=== PATIENT | female | born 1965 | race Caucasian/White ===

== ENCOUNTER 2018-08-19 14:24 | Emergency (ER) | payer MEDICAID ==
[2018-08-19 15:16] LABS: BASOPHILS # (AUTO) 0.1 X10'3 (0-0.2); BASOPHILS % (AUTO) 0.7 % (0-1); EOSINOPHILS % (AUTO) 0.3 % (0-6); HEMOGLOBIN 15.4 g/dl (12.0-16.0); LYMPHOCYTES # (AUTO) 1.5 X10'3 (1.1-4.8); LYMPHOCYTES % (AUTO) 18.3 % (21-51); MEAN CORPUSCULAR HGB CONC 33.6 g/dL (33.0-36.5); MEAN CORPUSCULAR VOLUME 86.5 FL (78-98); MEAN PLATELET VOLUME 8.7 FL (7.4-10.4); MONOCYTES # (AUTO) 0.7 X10'3 (0-0.9); MONOCYTES % (AUTO) 9.1 % (2-12); NEUTROPHILS # (AUTO) 5.8 X10'3 (1.8-7.7); NEUTROPHILS % (AUTO) 71.6 % (42-75); PLATELET COUNT 364 X10'3 (140-440); RED BLOOD COUNT 5.32 X10'6 (4.20-5.60); RED CELL DISTRIBUTION WIDTH 13.9 % (11.5-14.5); WHITE BLOOD COUNT 8.1 X10'3 (4.5-11.0)
[2018-08-19 15:23] LABS: INR 1.1 INR; PROTHROMBIN TIME 11.5 SECONDS (9.0-12.0)
[2018-08-19 15:29] LABS: ALANINE AMINOTRANSFERASE 18 U/L (12-78); ALBUMIN 3.8 G/DL (3.4-5.0); ALKALINE PHOSPHATASE 67 IU/L (46-116); ANION GAP 14 (8-16); ASPARTATE AMINO TRANSFERASE 19 U/L (10-37); BILIRUBIN,TOTAL 0.6 MG/DL (0.1-1.0); BLOOD UREA NITROGEN 3 MG/DL (7-18); BUN/CREATININE RATIO 5.3 (6.6-38.0); CALCIUM 9.5 MG/DL (8.5-10.1); CHLORIDE 97 MMOL/L (99-107); CREATININE 0.57 MG/DL (0.40-0.90); GLUCOSE 107 MG/DL (70-104); POTASSIUM 3.2 MMOL/L (3.5-5.1); SODIUM 134 MMOL/L (135-145); TOTAL CARBON DIOXIDE 23.5 MMOL/L (24-32); TOTAL PROTEIN 7.5 G/DL (6.4-8.2); eGFR > 90 ML/MIN
[2018-08-19] MEDS ORDERED: mag hydrox/Alum hydrox/simeth 30ml oral suspension PO ONE (17:10)
[2018-08-19] MEDS ORDERED: LIDOcaine Viscous 15ml cup PO ONE (17:10)
[2018-08-19] MEDS ORDERED: LORazepam 1 MG tablet PO ONE (17:10)
[2018-08-19] MEDS ORDERED: dicyclomine 10 MG capsule PO ONE (17:10)
[2018-08-19] MEDS ORDERED: DICY10CA88 PO (17:48)
[2018-08-19] MEDS ORDERED: LORA1TAB PO (17:48)
[2018-08-19] MEDS ORDERED: POTA20TA19 PO (17:56)
[2018-08-19 18:02] LABS: CLARITY,URINE CLEAR (Clear); COLOR,URINE YELLOW (Yellow); GLUCOSE, URINE NEGATIVE (Neg); KETONES,URINE >=80 mg/dl (Neg); LEUKOCYTE ESTERASE ,URINE NEGATIVE (Neg); NITRITES, URINE NEGATIVE (Neg); OCCULT BLOOD,URINE TRACE-INTACT (Neg); PH,URINE 5.5 (4.8-8.0); PROTEIN,URINE NEGATIVE (Neg); UROBILINOGEN,URINE 0.2 E.U/dL (0.2-1.0)
[2018-08-19 18:03] LABS: UA COLLECTION TYPE CLN CATCH MIDSTREAM
[2018-08-19 18:08] LABS: MUCUS STRANDS FEW /LPF (Neg); SQUAMOUS EPITHELIAL CELL,UR FEW /LPF (FEW)
[2018-08-19 18:10] LABS: BACTERIA,URINE 1+ /HPF (Neg); HYALINE CASTS 0-3 /LPF (NEGATIVE); RBC,URINE 0-2 /HPF (0-2); TRANSITIONAL EPI CELLS,URINE FEW /HPF; WBC,URINE 0-4 /HPF (0-4)
[2018-08-19 18:33] VITALS: BP 160/88
== END 2018-08-19 18:34 | disposition home or self-care (01) ==
LOC: ER 14:24
DX: R10.9 Unspecified abdominal pain (principal); E87.6 Hypokalemia; Z88.2 Allergy status to sulfonamides; Z88.6 Allergy status to analgesic agent; Z88.1 Allergy status to other antibiotic agents; Z88.8 Allergy status to other drugs, medicaments and biological substances; Z79.899 Other long term (current) drug therapy
CPT/HCPCS: 36415; 80053; 81001; 84484; 85025; 85610; 93005; 99284

== ENCOUNTER 2020-05-05 11:50 | Emergency (ER) | payer MEDICAID ==
[~2020-05-05] VITALS: Ht 165.1 cm; Wt 30.9 kg
[2020-05-05] MEDS ORDERED: normal saline 1000ML IV soln IVB ONE (12:20)
--- NOTE | 2020-05-05 12:25 | NUR ---
Pt refusing normal saline, stating it makes her "acidic". When asked what pt means, she states that IV fluids give her acid reflux symptoms.
[2020-05-05] MEDS ORDERED: LORazepam 2 mg/ml vial IV ONE (12:35)
[2020-05-05] MEDS ORDERED: pantoprazole 40 MG vial IV ONE (12:35)
[2020-05-05 12:45] LABS: BASOPHILS # (AUTO) 0.1 X10'3 (0-0.2); BASOPHILS % (AUTO) 1.1 % (0-1); EOSINOPHILS # (AUTO) 0.1 X10'3 (0-0.9); EOSINOPHILS % (AUTO) 1.2 % (0-6); HEMATOCRIT 44.5 % (35.0-45.0); HEMOGLOBIN 14.9 g/dl (12.0-16.0); LYMPHOCYTES # (AUTO) 1.8 X10'3 (1.1-4.8); LYMPHOCYTES % (AUTO) 27.8 % (21-51); MEAN CORPUSCULAR HGB CONC 33.5 g/dL (33.0-36.5); MEAN CORPUSCULAR VOLUME 89.5 FL (78-98); MEAN PLATELET VOLUME 7.7 FL (7.4-10.4); MONOCYTES # (AUTO) 0.6 X10'3 (0-0.9); MONOCYTES % (AUTO) 9.7 % (2-12); NEUTROPHILS # (AUTO) 3.8 X10'3 (1.8-7.7); NEUTROPHILS % (AUTO) 60.2 % (42-75); PLATELET COUNT 440 X10'3 (140-440); RED BLOOD COUNT 4.97 X10'6 (4.20-5.60); WHITE BLOOD COUNT 6.4 X10'3 (4.5-11.0)
--- NOTE | 2020-05-05 12:49 | NUR ---
Attempted to give pt protonix. Pt refused medication stating she's dry and doesn't have a problem with stomach acid. SACHIN Wells aware.
[2020-05-05 12:57] LABS: ALANINE AMINOTRANSFERASE 40 U/L (12-78); ALBUMIN 3.7 G/DL (3.4-5.0); ALKALINE PHOSPHATASE 67 IU/L (46-116); ANION GAP 6 (8-16); ASPARTATE AMINO TRANSFERASE 28 U/L (10-37); BILIRUBIN,TOTAL 0.5 MG/DL (0.1-1.0); BLOOD UREA NITROGEN 9 MG/DL (7-18); CALCIUM 9.3 MG/DL (8.5-10.1); CHLORIDE 102 MMOL/L (99-107); GLUCOSE 97 MG/DL (70-104); POTASSIUM 3.4 MMOL/L (3.5-5.1); SODIUM 138 MMOL/L (135-145); TOTAL CARBON DIOXIDE 29.7 MMOL/L (24-32); TOTAL PROTEIN 7.4 G/DL (6.4-8.2); eGFR > 90 ML/MIN
[2020-05-05 13:00] LABS: LIPASE 190 U/L (73-393); TROPONIN I < 0.04 NG/ML (0.0-0.05)
[2020-05-05 14:40] LABS: URINE HCG NEGATIVE (NEG)
[2020-05-05 14:41] LABS: CLARITY,URINE SLIGHTLY CLOUDY (Clear); COLOR,URINE STRAW (Yellow); GLUCOSE, URINE NEGATIVE (Neg); KETONES,URINE NEGATIVE (Neg); LEUKOCYTE ESTERASE ,URINE LARGE (Neg); NITRITES, URINE POSITIVE (Neg); OCCULT BLOOD,URINE TRACE-LYSED (Neg); PH,URINE 6.5 (4.8-8.0); PROTEIN,URINE NEGATIVE (Neg); UROBILINOGEN,URINE 0.2 E.U/dL (0.2-1.0)
[2020-05-05 14:47] LABS: UA COLLECTION TYPE CLN CATCH MIDSTREAM
[2020-05-05 14:50] LABS: RENAL CELLS, URINE FEW /HPF; SQUAMOUS EPITHELIAL CELL,UR FEW /LPF (FEW)
[2020-05-05 14:52] LABS: MUCUS STRANDS NONE SEEN /LPF (Neg); WBC CLUMPS,URINE FEW /HPF (NEGATIVE)
[2020-05-05 14:53] LABS: BACTERIA,URINE 4+ /HPF (Neg)
[2020-05-05 14:54] LABS: WBC,URINE TNTC /HPF (0-4)
[2020-05-05 14:55] LABS: RBC,URINE 0-2 /HPF (0-2)
[2020-05-05] MEDS ORDERED: PANT-47 PO (15:51)
[2020-05-05] MEDS ORDERED: CIPR-230 PO (15:51)
[2020-05-05] MEDS ORDERED: LORA-269 PO (15:51)
[2020-05-05 16:11] VITALS: BP 150/79
== END 2020-05-05 16:12 | disposition home or self-care (01) ==
LOC: ER 11:51
DX: R10.84 Generalized abdominal pain (principal); R07.89 Other chest pain; K21.9 Gastro-esophageal reflux disease without esophagitis; N39.0 Urinary tract infection, site not specified; Z88.2 Allergy status to sulfonamides; Z88.1 Allergy status to other antibiotic agents; Z88.8 Allergy status to other drugs, medicaments and biological substances; Z79.2 Long term (current) use of antibiotics; Z79.899 Other long term (current) drug therapy
CPT/HCPCS: 36415; 71045; 74176; 80053; 81001; 81025; 83690; 84484; 85025; 87088; 87186; 93005; 96374; 99285; J2060; 87077

== ENCOUNTER 2020-05-09 11:47 | Emergency (ER) | payer MEDICAID ==
[~2020-05-09] VITALS: Ht 160 cm; Wt 30.0 kg
[~2020-05-09 11:47] MED LIST: CIPR-230 PO; LORA-269 PO; PANT-47 PO
[2020-05-09] MEDS ORDERED: LORazepam 2 mg/ml vial IV ONE (12:40)
[2020-05-09] MEDS ORDERED: famotidine/PF 10 mg/ml inj IV ONE (12:40)
[2020-05-09] MEDS ORDERED: haloperidol lactate 5mg/ml inj IM ONE (12:40)
[2020-05-09] MEDS ORDERED: normal saline 1000ML IV soln IVB ONE (12:40)
[2020-05-09 12:52] LABS: BASOPHILS % (AUTO) 0.3 % (0-1); EOSINOPHILS % (AUTO) 0 % (0-6); HEMATOCRIT 39.2 % (35.0-45.0); HEMOGLOBIN 13.3 g/dl (12.0-16.0); LYMPHOCYTES # (AUTO) 0.9 X10'3 (1.1-4.8); LYMPHOCYTES % (AUTO) 5.9 % (21-51); MEAN CORPUSCULAR HEMOGLOBIN 30.1 PG (27.0-31.0); MEAN CORPUSCULAR VOLUME 88.5 FL (78-98); MEAN PLATELET VOLUME 7.6 FL (7.4-10.4); MONOCYTES # (AUTO) 0.6 X10'3 (0-0.9); MONOCYTES % (AUTO) 4.1 % (2-12); NEUTROPHILS # (AUTO) 13.6 X10'3 (1.8-7.7); NEUTROPHILS % (AUTO) 89.7 % (42-75); PLATELET COUNT 405 X10'3 (140-440); RED BLOOD COUNT 4.43 X10'6 (4.20-5.60); RED CELL DISTRIBUTION WIDTH 12.7 % (11.5-14.5); WHITE BLOOD COUNT 15.1 X10'3 (4.5-11.0)
[2020-05-09 13:03] LABS: CLARITY,URINE CLOUDY (Clear); COLOR,URINE STRAW (Yellow); GLUCOSE, URINE 250 mg/dl (Neg); KETONES,URINE 15 mg/dl (Neg); LEUKOCYTE ESTERASE ,URINE NEGATIVE (Neg); NITRITES, URINE POSITIVE (Neg); OCCULT BLOOD,URINE NEGATIVE (Neg); PROTEIN,URINE NEGATIVE (Neg); UROBILINOGEN,URINE 0.2 E.U/dL (0.2-1.0)
[2020-05-09 13:04] LABS: UA COLLECTION TYPE STRAIGHT CATH
[2020-05-09 13:05] LABS: ALANINE AMINOTRANSFERASE 34 U/L (12-78); ALBUMIN 3.4 G/DL (3.4-5.0); ALKALINE PHOSPHATASE 65 IU/L (46-116); ANION GAP 8 (8-16); ASPARTATE AMINO TRANSFERASE 29 U/L (10-37); BILIRUBIN,TOTAL 0.6 MG/DL (0.1-1.0); BLOOD UREA NITROGEN 7 MG/DL (7-18); BUN/CREATININE RATIO 15.2 (6.6-38.0); CHLORIDE 87 MMOL/L (99-107); CREATININE 0.46 MG/DL (0.40-0.90); ETHANOL < 0.010 GM/DL (0.0-0.010); GLUCOSE 162 MG/DL (70-104); LIPASE 75 U/L (73-393); TOTAL CARBON DIOXIDE 25.2 MMOL/L (24-32); TOTAL PROTEIN 6.8 G/DL (6.4-8.2); eGFR > 90 ML/MIN
[2020-05-09 13:07] LABS: SODIUM 120 MMOL/L (135-145)
[2020-05-09 13:08] LABS: URINE AMPHETAMINE SCREEN NEGATIVE (Neg); URINE BARBITUATE SCREEN NEGATIVE (Neg); URINE BENZODIAZEPINES SCREEN NEGATIVE (Neg); URINE CANNABINOID SCREEN NEGATIVE (Neg); URINE COCAINE SCREEN NEGATIVE (Neg); URINE METHADONE SCREEN NEGATIVE (Neg); URINE OPIATE SCREEN NEGATIVE (Neg); URINE PHENCYCLIDINE SCREEN NEGATIVE (Neg)
[2020-05-09] MEDS ORDERED: magnesium 2GM in 50ml NS 50 ML IV ONE (13:10)
[2020-05-09] MEDS ORDERED: CefTRIAXone 2gm/D5W 50ml BAG 50 ML IV ONE (13:10)
[2020-05-09] MEDS ORDERED: potassium Cl 10 mEq/100mL bag IV ONE (13:10)
[2020-05-09 13:17] LABS: BACTERIA,URINE 4+ /HPF (Neg); RBC,URINE 0-2 /HPF (0-2); SQUAMOUS EPITHELIAL CELL,UR FEW /LPF (FEW); WBC,URINE 0-4 /HPF (0-4)
--- NOTE | 2020-05-09 14:00 | NUR ---
Pt is resting quietly with eyes closed.
[2020-05-09] MEDS ORDERED: potassium Cl 40MEQ/1/2NS 520ml 520 ML IV PRN ×2 (14:05)
[2020-05-09] MEDS ORDERED: normal saline 1000ml 1,000 ML IV SCH (14:05)
[2020-05-09] MEDS ORDERED: ondansetron/PF 4mg/2ml inj IV PRN (14:05)
[2020-05-09] MEDS ORDERED: potassium Cl 20 mEq SR tablet PO PRN ×2 (14:05)
[2020-05-09] MEDS ORDERED: acetaminophen 325mg tablet PO PRN (14:05)
[2020-05-09] MEDS ORDERED: magnesium 4gm in 100ml NS 100 ML IV PRN (14:05)
[2020-05-09] MEDS ORDERED: magnesium 2GM in 50ml NS 50 ML IV PRN (14:05)
[2020-05-09] MEDS ORDERED: magnesium Cl slow-release 64mg tablet PO PRN (14:05)
[2020-05-09] MEDS ORDERED: PANT40TA54 PO (15:24)
[2020-05-09] MEDS ORDERED: [UNRECOGNIZED DRUG - CODE] PO (15:24)
--- NOTE | 2020-05-09 16:21 | NUR ---
PAGER ID: [phone] MESSAGE: [id number] RE: BED 2 SYDNEY 2 HR LACTIC 4.7
[2020-05-09] MEDS ORDERED: normal saline 1000ml 1,000 ML IV ONE (16:35)
[2020-05-09 18:47] VITALS: BP 143/82
[2020-05-09] MEDS ORDERED: LEVO500T89 PO (19:38)
[2020-05-09] MEDS ORDERED: K and/or MAG REPLACEMENT MC SCH (20:00)
[2020-05-10] MEDS ORDERED: pantoprazole 40mg Tablet.DR PO SCH (08:00)
[2020-05-10] MEDS ORDERED: CefTRIAXone/D5W-Rocephin 1gm 50 ML IV SCH (08:00)
--- NOTE | 2020-05-23 07:02 | NUR ---
Letter sent to patient regarding need to stop Levaquin and begin Cefdiner. Unable to contact patient by phone
--- NOTE | 2020-05-29 08:01 | NUR ---
RX: cefdiner 300 mg PO BID x7 days, #14 0 refills Stop Levaquin Per Dr. Downs
== END 2020-05-09 20:08 | disposition left against medical advice (07) ==
LOC: ER 11:47 → UNDOADMIN 14:04 → ED HOLD 14:04 → UNDODISIN 20:08
DX: A41.9 Sepsis, unspecified organism (principal); N39.0 Urinary tract infection, site not specified; E87.1 Hypo-osmolality and hyponatremia; E86.0 Dehydration; E87.6 Hypokalemia; Z88.2 Allergy status to sulfonamides; Z88.6 Allergy status to analgesic agent; Z88.1 Allergy status to other antibiotic agents; Z79.899 Other long term (current) drug therapy
CPT/HCPCS: 36415; 80053; 80305; 80320; 81001; 83605; 83690; 84145; 85025; 87040; 87077; 87081; 87088; 87186; 93005; 96361; 96365; 96368; 96372; 96375; 99285; J0696; J1630; J2060; J3475; J3480; J3490; J7030; 96374; G0378

== ENCOUNTER 2020-05-31 14:00 | Emergency (ER) | payer MEDICAID ==
[~2020-05-31] VITALS: Ht 165.1 cm; Wt 31.8 kg
[~2020-05-31 14:00] MED LIST changes: -CIPR-230 PO; -LORA-269 PO; -PANT-47 PO; +PANT40TA54 PO; +[UNRECOGNIZED DRUG - CODE] PO
[2020-05-31 14:01] VITALS: BP 158/82
[2020-05-31] MEDS ORDERED: normal saline 1000ml 1,000 ML IV ONE (14:25)
[2020-05-31 15:13] LABS: ALANINE AMINOTRANSFERASE 49 U/L (12-78); ALBUMIN 3.5 G/DL (3.4-5.0); ALKALINE PHOSPHATASE 81 IU/L (46-116); ANION GAP 6 (8-16); ASPARTATE AMINO TRANSFERASE 25 U/L (10-37); BILIRUBIN,TOTAL 0.5 MG/DL (0.1-1.0); BLOOD UREA NITROGEN 11 MG/DL (7-18); BUN/CREATININE RATIO 22.4 (6.6-38.0); CHLORIDE 100 MMOL/L (99-107); CREATININE 0.49 MG/DL (0.40-0.90); GLUCOSE 102 MG/DL (70-104); LIPASE 142 U/L (73-393); POTASSIUM 3.7 MMOL/L (3.5-5.1); SODIUM 137 MMOL/L (135-145); TOTAL CARBON DIOXIDE 30.7 MMOL/L (24-32); eGFR > 90 ML/MIN
[2020-05-31 15:19] LABS: CALCIUM 9.1 MG/DL (8.5-10.1)
[2020-05-31 15:30] LABS: BASOPHILS # (AUTO) 0.1 X10'3 (0-0.2); BASOPHILS % (AUTO) 0.7 % (0-1); EOSINOPHILS # (AUTO) 0.1 X10'3 (0-0.9); EOSINOPHILS % (AUTO) 0.7 % (0-6); HEMATOCRIT 40.9 % (35.0-45.0); HEMOGLOBIN 13.5 g/dl (12.0-16.0); LYMPHOCYTES # (AUTO) 1.3 X10'3 (1.1-4.8); LYMPHOCYTES % (AUTO) 16.1 % (21-51); MEAN CORPUSCULAR HEMOGLOBIN 29.9 PG (27.0-31.0); MEAN CORPUSCULAR VOLUME 90.6 FL (78-98); MEAN PLATELET VOLUME 7.5 FL (7.4-10.4); MONOCYTES # (AUTO) 0.6 X10'3 (0-0.9); MONOCYTES % (AUTO) 7.8 % (2-12); NEUTROPHILS # (AUTO) 5.8 X10'3 (1.8-7.7); NEUTROPHILS % (AUTO) 74.7 % (42-75); PLATELET COUNT 356 X10'3 (140-440); RED BLOOD COUNT 4.51 X10'6 (4.20-5.60); RED CELL DISTRIBUTION WIDTH 13.1 % (11.5-14.5); WHITE BLOOD COUNT 7.8 X10'3 (4.5-11.0)
--- NOTE | 2020-05-31 17:03 | NUR ---
Pt voicing concern, states that she feels that the NS bolus has made her symptoms worse than upon arrival. States "my stomach is collapsing on itself"; adds that NS also usually makes her potassium "drop", wants recheck.
[2020-05-31 17:25] LABS: CLARITY,URINE CLEAR (Clear); COLOR,URINE STRAW (Yellow); GLUCOSE, URINE NEGATIVE (Neg); KETONES,URINE NEGATIVE (Neg); LEUKOCYTE ESTERASE ,URINE NEGATIVE (Neg); NITRITES, URINE NEGATIVE (Neg); OCCULT BLOOD,URINE SMALL (Neg); PH,URINE 6.5 (4.8-8.0); PROTEIN,URINE NEGATIVE (Neg); UA COLLECTION TYPE OTHER; UROBILINOGEN,URINE 0.2 E.U/dL (0.2-1.0)
[2020-05-31 17:33] LABS: BACTERIA,URINE NONE SEEN /HPF (Neg); RBC,URINE 0-2 /HPF (0-2); SQUAMOUS EPITHELIAL CELL,UR FEW /LPF (FEW); WBC,URINE 0-4 /HPF (0-4)
== END 2020-05-31 17:54 | disposition home or self-care (01) ==
LOC: ER 14:00
DX: G89.29 Other chronic pain (principal); R10.32 Left lower quadrant pain; R10.31 Right lower quadrant pain; Z88.2 Allergy status to sulfonamides; Z88.1 Allergy status to other antibiotic agents; Z88.8 Allergy status to other drugs, medicaments and biological substances; Z79.2 Long term (current) use of antibiotics; Z79.899 Other long term (current) drug therapy
CPT/HCPCS: 36415; 80053; 81001; 83690; 84443; 85025; 93005; 96360; 99284; J7030

== ENCOUNTER 2020-06-06 14:47 | Emergency (ER) | payer MEDICAID ==
[~2020-06-06] VITALS: Ht 165.1 cm; Wt 31.8 kg
[2020-06-06] MEDS ORDERED: ondansetron/PF 4mg/2ml inj IV ONE (15:50)
[2020-06-06] MEDS ORDERED: normal saline 1000ML IV soln IVB ONE (15:50)
[2020-06-06 16:00] LABS: BASOPHILS # (AUTO) 0.1 X10'3 (0-0.2); BASOPHILS % (AUTO) 0.5 % (0-1); EOSINOPHILS # (AUTO) 0.1 X10'3 (0-0.9); HEMATOCRIT 42.3 % (35.0-45.0); LYMPHOCYTES # (AUTO) 1.9 X10'3 (1.1-4.8); LYMPHOCYTES % (AUTO) 17.8 % (21-51); MEAN CORPUSCULAR HEMOGLOBIN 29.9 PG (27.0-31.0); MEAN CORPUSCULAR HGB CONC 33.2 g/dL (33.0-36.5); MEAN PLATELET VOLUME 7.8 FL (7.4-10.4); MONOCYTES # (AUTO) 0.9 X10'3 (0-0.9); MONOCYTES % (AUTO) 8.5 % (2-12); NEUTROPHILS # (AUTO) 7.7 X10'3 (1.8-7.7); NEUTROPHILS % (AUTO) 72.2 % (42-75); PLATELET COUNT 365 X10'3 (140-440); RED CELL DISTRIBUTION WIDTH 13.1 % (11.5-14.5); WHITE BLOOD COUNT 10.6 X10'3 (4.5-11.0)
[2020-06-06 16:02] LABS: CLARITY,URINE CLEAR (Clear); COLOR,URINE STRAW (Yellow); GLUCOSE, URINE NEGATIVE (Neg); KETONES,URINE NEGATIVE (Neg); LEUKOCYTE ESTERASE ,URINE TRACE (Neg); NITRITES, URINE NEGATIVE (Neg); OCCULT BLOOD,URINE NEGATIVE (Neg); PROTEIN,URINE NEGATIVE (Neg); UROBILINOGEN,URINE 0.2 E.U/dL (0.2-1.0)
[2020-06-06 16:03] LABS: UA COLLECTION TYPE CLN CATCH MIDSTREAM; URINE HCG NEGATIVE (NEG)
--- NOTE | 2020-06-06 16:05 | NUR ---
Dr. Downs at bedside.
--- NOTE | 2020-06-06 16:06 | NUR ---
Refused NS and Dr. Yareli erickson aware.
[2020-06-06 16:12] LABS: BACTERIA,URINE FEW /HPF (Neg); RBC,URINE 0-2 /HPF (0-2); SQUAMOUS EPITHELIAL CELL,UR FEW /LPF (FEW); WBC,URINE 0-4 /HPF (0-4)
[2020-06-06 16:19] LABS: ALANINE AMINOTRANSFERASE 39 U/L (12-78); ALBUMIN 3.3 G/DL (3.4-5.0); ALKALINE PHOSPHATASE 78 IU/L (46-116); ANION GAP 6 (8-16); ASPARTATE AMINO TRANSFERASE 21 U/L (10-37); BILIRUBIN,TOTAL 0.3 MG/DL (0.1-1.0); BLOOD UREA NITROGEN 16 MG/DL (7-18); BUN/CREATININE RATIO 31.4 (6.6-38.0); CALCIUM 8.7 MG/DL (8.5-10.1); CHLORIDE 100 MMOL/L (99-107); CREATININE 0.51 MG/DL (0.40-0.90); GLUCOSE 109 MG/DL (70-104); POTASSIUM 3.6 MMOL/L (3.5-5.1); SODIUM 134 MMOL/L (135-145); TOTAL CARBON DIOXIDE 27.7 MMOL/L (24-32); TOTAL PROTEIN 6.7 G/DL (6.4-8.2); eGFR > 90 ML/MIN
[2020-06-06 16:28] LABS: AMYLASE 86 U/L (25-115); LIPASE 188 U/L (73-393)
--- NOTE | 2020-06-06 17:45 | NUR ---
Patient reports emesis,some blood noted in the emesis bag,patient denied self induced emesis,Dr. Downs made aware and said he will order repeat CT,Lynette/daughter and POA made aware.
--- NOTE | 2020-06-06 19:58 | NUR ---
EMPTIED BSC 700ML URINE, PT REFUSED BLADDER SCAN AT THIS TIME
[2020-06-06 20:08] VITALS: BP 139/85
== END 2020-06-06 20:05 | disposition home or self-care (01) ==
LOC: ER 14:48
DX: R10.84 Generalized abdominal pain (principal); G89.29 Other chronic pain; K21.9 Gastro-esophageal reflux disease without esophagitis; Z87.440 Personal history of urinary (tract) infections; Z91.041 Radiographic dye allergy status; Z88.2 Allergy status to sulfonamides; Z88.1 Allergy status to other antibiotic agents; Z88.8 Allergy status to other drugs, medicaments and biological substances
CPT/HCPCS: 36415; 71045; 74176; 80053; 81001; 81025; 82150; 83690; 83735; 83880; 84484; 85025; 85610; 87088; 93005; 99285